=== PATIENT | male | born 1980 | race Caucasian/White ===

== ENCOUNTER → 2020-02-14 | Outpatient (CLI) | payer BC ==
--- NOTE | 2020-02-14 11:06 | P.STRESS ---
- Stress Test Note Stress Test Results/Findings: Exam Performed: NM stress cardiolite complete Exam Date: 02/14/20 Reason for Exam: CHEST PAIN Height: 5 ft 10 in Weight: 95.254 kg Protocol: CARDIOLITE RAUL Stage: IV Duration of Exercise: 12:44 Resting Heart Rate: 63 Resting Blood Pressure: 130/84 Maximum Achieved Heart Rate: 174 Maximum Achieved Blood Pressure: 200/77 85% PMHR: 156 100% PMHR: 183 METS: 13.1 Technologist Comment: Stress Test Results/Findings: This is a 39-year-old gentleman with history of hypercholesteremia and smoking being evaluated for symptoms of chest pain, shortness of breath and palpitations. Stress data: Baseline EKG showed sinus rhythm with normal PA interval and QRS duration with her and evidence of early repolarization changes. Blood pressure at rest is 130/84 with pulse rate of 63. Patient walked on the Raul protocol for 12 minutes and 44 seconds achieving a maximum rate of 158 with blood pressu re for 200/77. EKGs taken during and after exercise did not reveal any changes to suggest ischemia. Patient did not experience any chest pain. Final impression: #1. Negative stress test #2. Patient did not experience any chest pain #3. No arrhythmias noted. #4. Excellent exercise capacity #5. Report of the nuclear images to be provided by radiologist
--- NOTE | 2020-02-14 12:29 | EST ---
Stress Test Results/Findings: Exam Performed: NM stress cardiolite complete Exam Date: 02/14/20 Reason for Exam: CHEST PAIN Height: 5 ft 10 in Weight: 95.254 kg Protocol: CARDIOLITE RAUL Stage: IV Duration of Exercise: 12:44 Resting Heart Rate: 63 Resting Blood Pressure: 130/84 Maximum Achieved Heart Rate: 174 Maximum Achieved Blood Pressure: 200/77 85% PMHR: 156 100% PMHR: 183 METS: 13.1 Technologist Comment: Stress Test Results/Findings: This is a 39-year-old gentleman with history of hypercholesteremia and smoking being evaluated for symptoms of chest pain, shortness of breath and palpitations. Stress data: Baseline EKG showed sinus rhythm with normal ME interval and QRS duration with her and evidence of early repolarization changes. Blood pressure at rest is 130/84 with pulse rate of 63. Patient walked on the Raul protocol for 12 minutes and 44 seconds achieving a maximum rate of 158 with blood pressure for 200/77. EKGs taken during and after exercise did not reveal any changes to suggest ischemia. Patient did not experience any chest pain. Final impression: #1. Negative stress test #2. Patient did not experience any chest pain #3. No arrhythmias noted. #4. Excellent exercise capacity #5. Report of the nuclear images to be provided by radiologist FOREIGN
--- NOTE | 2020-02-14 14:57 | NM ---
EXAMINATION TYPE: NM stress cardiolite complete DATE OF EXAM: 02/14/2020 COMPARISON: NONE HISTORY: A78.5, R07.9, Z72.0, Z82.49 TECHNIQUE: After the intravenous administration of 9.5 mCi Tc 99m Sestamibi - Rest images obtained 4 5 minutes post injection. The patient exercised using a RAUL protocol and 1 minute prior to peak e xercise was injected with 25.1 mCi Tc 99m Sestamibi - Stress images obtained 10 minutes post injectio n. FINDINGS: Targeted heart rate was achieved during performance of the study. Review of stress and rest SPECT jagdish ges demonstrates mild reversible ischemic perfusion abnormality of the anterior mid wall. There is de creased activity of the inferior wall on both stress and rest imaging, however with normal wall motio n and likely represents attenuation artifact and unlikely to represent scarring. Gated analysis show s normal wall motion with an estimated left ventricular ejection fraction of 62 %. TID 0.87 IMPRESSION: 1. Mild reversible ischemia of the anterior mid wall. 2. Attenuation artifact of the inferior wall. 3. Ejection fraction 62%. A [place] level critical message alert has been initiated for Elizabeth Madera MD via the [employer] Critical Results System on 02/14/2020 2:55 PM. This message alert has been sent to Elizabeth Madera MD via the preferences provided by the clinician for the receipt of Radiology Critical Findings. MoPub e ID [id number].
--- NOTE | 2020-02-16 14:00 | ECHOF ---
Referral Reason:E78.5, R07.9, Z72.0, Z82.49 MEASUREMENTS -------- HEIGHT: 177.8 cm WEIGHT: 95.3 kg BP: IVSd: 1.1 cm (0.6 - 1.1) LVIDd: 3.8 cm (3.9 - 5.3) LVPWd: 1.3 cm (0.6 - 1.1) IVSs: 1.7 cm LVIDs: 2.6 cm LVPWs: 1.8 cm RVIDd: 3.8 cm (< 3.3) LAESV Index (A-L): 28.66 ml/m Ao Diam: 2.9 cm (2.0 - 3.7) AV Cusp: 2.2 cm (1.5 - 2.6) EPSS: 0.3 cm MV E Dion: 0.93 m/s MV DecT: 199 ms MV A Dion: 0.76 m/s MV E/A Ratio: 1.23 RAP: 5.00 mmHg RVSP: 26.43 mmHg MV EF SLOPE: 156.23 mm/s (70 - 150) MV EXCURSION: 20.47 mm (> 18.000) FINDINGS -------- Sinus rhythm. This was a technically good study. The left ventricular size is normal. There is mild concentric left ventricular hypertrophy. Overa ll left ventricular systolic function is normal with, an EF between 55 - 60 %. The diastolic fillin g pattern is normal for the age of the patient 8.30. The right ventricle is mildly enlarged. Normal LA size by volume 22+/-6 ml/m2. The right atrial size is normal. Interatrial and interventricular septum intact. The aortic valve is trileaflet and appears structurally normal. There is no evidence of aortic regu rgitation. There is no evidence of aortic stenosis. Mild mitral regurgitation is present. Mild tricuspid regurgitation present. There is no evidence of pulmonary hypertension. There is no pulmonic regurgitation present. The aortic root size is normal. Normal inferior vena cava with normal inspiratory collapse consistent with estimated right atrial pre ssure of 5 mmHg. There is no pericardial effusion. CONCLUSIONS -------- 1. The left ventricular size is normal. 2. There is mild concentric left ventricular hypertrophy. 3. Overall left ventricular systolic function is normal with, an EF between 55 - 60 %. 4. The diastolic filling pattern is normal for the age of the patient 8.30 5. The right ventricle is mildly enlarged. 6. Mild mitral regurgitation is present. 7. Mild tricuspid regurgitation present. [employer] DISTRIBUTOR: Rosalie Gant RDCS
== END | disposition home or self-care (01) ==
LOC: RADECHMAIN 07:38
PROVIDERS: ATTEND Family Medicine
DX: I25.89 Other forms of chronic ischemic heart disease (principal); E78.5 Hyperlipidemia, unspecified; Z72.0 Tobacco use; Z82.49 Family history of ischemic heart disease and other diseases of the circulatory system
CPT/HCPCS: 93017; 93306; 78452; A9500